=== PATIENT | female | born 1980 | race Two or more races ===

== ENCOUNTER 2018-03-26 15:20 | Emergency (ER) | payer SELFPAY ==
[~2018-03-26] VITALS: Ht 162.6 cm; Wt 69.4 kg
[2018-03-26] MEDS ORDERED: Norco 5mg/325mg tab ORAL ONE (16:15)
[2018-03-26 16:28] VITALS: BP 113/72
--- NOTE | 2018-03-26 16:47 | Diagnostic Imaging Report ---
Indication: Pain Forearm pain Findings: 2 views of the left forearm were obtained. No acute fractures, malalignment, erosions or periostitis are identified. Bone mineralization is within normal limits. Soft tissues are unremarkable. Impression: Negative for acute injury.
--- NOTE | 2018-03-26 16:47 | Diagnostic Imaging Report ---
Indication: Pain left wrist pain Findings: 3 views of the left wrist were obtained. No acute fractures, malalignment, erosions or periostitis are identified. Soft tissues are unremarkable. Impression: No acute findings.
--- NOTE | 2018-03-26 16:48 | Diagnostic Imaging Report ---
Indication: Pain Findings: 3 views of the left elbow were obtained. No acute fractures, malalignment, erosions or periostitis are identified. Soft tissues are unremarkable. Impression: No acute injury
--- NOTE | 2018-03-26 17:02 | Emergency Room Report ---
History of Present Illness General Chief Complaint: Upper Extremity Injury Source: Patient Present Illness HPI 37-year-old female presents to the emergency department complaining of 9 out of 10 in severity pain to the left posterior elbow, left forearm, left wrist and 5 out of 10 in severity pain to her shoulder blade status post mechanical slip and fall. Patient denies hitting her head she denies loss of consciousness she denies midline neck or back pain. She denies open wounds. Denies numbness tingling or loss of sensation or gross motor movements of the extremities, incontinence of bowel or bladder. Denies CP, Palpitations, LOC, AMS, dizziness, Changes in Vision, paresthesias, or a sudden severe headache. Allergies: Coded Allergies: No Known Allergies (Unverified , 03/26/18) Patient History Past Medical History: see triage record Past Surgical History: none Pertinent Family History: none Last Menstrual Period: 03/25/18 Now: No Reviewed Nursing Documentation: PMH: Agreed; PSxH: Agreed Review of Systems All Other Systems: negative except mentioned in HPI Physical Exam Vital Signs Date Time Temp Pulse Resp B/P (MAP) Pulse Ox O2 Delivery O2 Flow Rate FiO2 03/26/18 15:50 98.4 65 18 113/72 97 Room Air 98.4 Sp02 EP Interpretation: reviewed, normal General Appearance: alert, GCS 15, non-toxic, mild distress Head: normocephalic, atraumatic ENT: hearing grossly normal, normal voice Neck: full range of motion, no bony tend Respiratory: chest non-tender, lungs clear, normal breath sounds, speaking full sentences Cardiovascular #1: regular rate, rhythm, normal capillary refill Musculoskeletal: back normal, gait/station normal, normal range of motion, tender - TTP: left elbow posteriorly, left forearm, and left wrist, no obvious deformity, no bruises, mild ttp to the upper left back/posterior shoulder, FROM. NVI Neurologic: alert, oriented x3, responsive, motor strength/tone normal, sensory intact, normal gait, speech normal, grossly normal Psychiatric: judgement/insight normal Skin: normal color, no rash, warm/dry, well hydrated Medical Decision Making PA Attestation Dr. Garza is my supervising Physician whom patient management has been discussed with. Diagnostic Impression: Primary Impression: Contusion Qualified Codes: S50.02XA - Contusion of left elbow, initial encounter Additional Impressions: Wrist contusion Qualified Codes: S60.212A - Contusion of left wrist, initial encounter Elbow contusion Qualified Codes: S50.02XA - Contusion of left elbow, initial encounter ER Course 37-year-old female presents to the emergency department complaining of 9 out of 10 in severity pain to the left posterior elbow, left forearm, left wrist and 5 out of 10 in severity pain to her shoulder blade status post mechanical slip and fall. Patient denies hitting her head she denies loss of consciousness she denies midline neck or back pain. She denies open wounds. Denies numbness tingling or loss of sensation or gross motor movements of the extremities, incontinence of bowel or bladder. Denies CP, Palpitations, LOC, AMS, dizziness, Changes in Vision, paresthesias, or a sudden severe headache. Ddx considered but are not limited to Fracture, dislocation, contusion, Sprain/ Strain/Spasm, Vital signs: are WNL, pt. is afebrile H&PE are most consistent with musculoskeletal injury will perform imaging to r/ o fractures/dislocations. ORDERS: - X-ray's LEFT: Elbow ( 3views) , Forearm (2 views) and Wrist (3 Views) - negative for fx, Dislocation, or significant soft tissue injury, per preliminary read in ED, and signed by BRE Goldstein, my supervising physician has reviewed, and agrees with my interpretation. ED INTERVENTIONS: - pain medication po - Right arm Sling applied by medical technologist chief. Pt. remains neurovascularly intact. DISCHARGE: At this time pt. is stable for d/c to home. Will provide printed patient care instructions, and any necessary prescriptions. Care plan and follow up instructions have been discussed with the patient prior to discharge. Other X-Ray Diagnostic Results Other X-Ray Diagnostic Results #1: X-Ray ordered: Left elbow # of Views/Limited Vs Complete: 3 View Indication: Pain EP Interpretation: Yes PA Xray: Interpretation reviewed, by supervising MD, and agrees with findings. Interpretation: no dislocation, no soft tissue swelling, no fractures Impression: No acute disease Electronically Signed by: Alyssa Goldstein PA-C Other X-Ray Diagnostic Results #2: X-Ray ordered: Left Forearm # of Views/Limited Vs Complete: 2 View Indication: Pain EP Interpretation: Yes PA Xray: Interpretation reviewed, by supervising MD, and agrees with findings. Interpretation: no dislocation, no soft tissue swelling, no fractures Impression: No acute disease Electronically Signed by: Alyssa Goldstein PA-C Other X-Ray Diagnostic Results #3: X-Ray ordered: Left Wrist # of Views/Limited Vs Complete: 3 View Indication: Pain EP Interpretation: Yes PA Xray: Interpretation reviewed, by supervising MD, and agrees with findings. Interpretation: no dislocation, no soft tissue swelling, no fractures Impression: No acute disease Electronically Signed by: Alyssa Goldstein PA-C Last Vital Signs Date Time Temp Pulse Resp B/P (MAP) Pulse Ox O2 Delivery O2 Flow Rate FiO2 03/26/18 16:28 98.4 89 18 113/72 97 Room Air 98.4 Disposition: HOME, SELF-CARE Condition: Stable Scripts Ibuprofen* (MOTRIN*) 600 Mg Tablet 600 MG ORAL THREE TIMES A DAY, #20 TAB 0 Refills Prov: Alyssa Goldstein 03/26/18 Referrals: UNKNOWN (PCP) Patient Instructions: Contusion Additional Instructions: Take medications as directed. Follow up with a Primary Care Provider in 3-5 days, even if your symptoms have resolved. --Please review list of primary care clinics, if you do not already have a primary care provider Return sooner to ED if new symptoms occur, or current symptoms become worse. - Please note that this Emergency Department Report was dictated using [employer]/refuse collector technology software, occasionally this can lead to erroneous entry secondary to interpretation by the dictation equipment. Alyssa Goldstein March 26, 2018 17:02
[2018-03-26] MEDS ORDERED: IBUPROFEN600 MG ORAL (17:06)
[2018-03-26 17:15] VITALS: BP 113/72
== END 2018-03-26 17:16 | disposition home or self-care (01) ==
LOC: EMR 16:11
DX: S60.212A Contusion of left wrist, initial encounter (principal); S50.02XA Contusion of left elbow, initial encounter; W01.0XXA Fall on same level from slipping, tripping and stumbling without subsequent striking against object, initial encounter; Y92.9 Unspecified place or not applicable
CPT/HCPCS: 99284